=== PATIENT | male | born 1980 | race Caucasian/White ===

== ENCOUNTER 2020-10-19 21:57 | Emergency (ER) | payer OTHER ==
[2020-10-19 22:09] VITALS: BP 141/95; PULSE 72; TEMP 98.3; BMI 30.1
== END 2020-10-20 01:27 | disposition home or self-care (01) ==
LOC: JER 21:57
DX: S52.691A Other fracture of lower end of right ulna, initial encounter for closed fracture (principal); S52.591A Other fractures of lower end of right radius, initial encounter for closed fracture
CPT/HCPCS: 73110-TC-RT-FY; 73130-TC-RT-FY; 99284-25